=== PATIENT | male | born 1985 | race Caucasian/White ===

== ENCOUNTER 2021-03-29 03:57 | Emergency (ER) | payer OTHER, SELFPAY ==
[~2021-03-29] VITALS: Ht 175.3 cm; Wt 100.0 kg
[2021-03-29 04:59] LABS: HEMATOCRIT 47.8 % (42.0-52.0); HEMOGLOBIN 15.8 g/dl (13.5-17.5); MEAN CORPUSCULAR HEMOGLOBIN 32.2 pg (27.0-33.0); MEAN CORPUSCULAR HGB CONC 33.1 g/dl (32.0-36.5); MEAN CORPUSCULAR VOLUME 97.4 fl (80.0-96.0); PLATELET COUNT, AUTOMATED 326 10^3/uL (150-450); RED BLOOD COUNT 4.91 10^6/uL (4.30-6.10); WHITE BLOOD COUNT 7.9 10^3/uL (4.0-10.0)
[2021-03-29 05:28] LABS: ALT/SGPT 39 U/L (12-78); BILIRUBIN,DIRECT < 0.1 MG/DL (0.0-0.2); BLOOD UREA NITROGEN 13 MG/DL (7-18); CALCIUM LEVEL 8.3 MG/DL (8.5-10.1); CARBON DIOXIDE LEVEL 28 MEQ/L (21-32); CHLORIDE LEVEL 109 MEQ/L (98-107); CREATININE FOR GFR 0.95 MG/DL (0.70-1.30); GLOMERULAR FILTRATION RATE > 60.0 (>60); GLUCOSE, FASTING 95 MG/DL (70-100); POTASSIUM SERUM 4.5 MEQ/L (3.5-5.1); SALICYLATE LEVEL 2.5 MG/DL (5.0-30.0); SODIUM LEVEL 143 MEQ/L (136-145); TOTAL PROTEIN 7.7 GM/DL (6.4-8.2)
[2021-03-29 05:29] LABS: ACETAMINOPHEN LEVEL < 2.0 UG/ML (10.0-30.0)
[2021-03-29 06:45] LABS: BILIRUBIN,TOTAL < 0.1 MG/DL (0.2-1.0)
[2021-03-29 10:10] LABS: AMPHETAMINES LEVEL URINE NEGATIVE (NEGATIVE); BARBITURATES URINE NEGATIVE (NEGATIVE); BENZODIAZEPINES URINE NEGATIVE (NEGATIVE); CANNABINOIDS URINE NEGATIVE (NEGATIVE); COCAINE METABOLITE URINE NEGATIVE (NEGATIVE); METHADONE URINE NEGATIVE (NEGATIVE); OPIATES URINE NEGATIVE (NEGATIVE); PHENCYCLIDINE URINE NEGATIVE (NEGATIVE)
[2021-03-29 21:56] VITALS: BP 168/88
== END 2021-03-29 23:17 ==
LOC: M ED 03:57
DX: F32.9 Major depressive disorder, single episode, unspecified (principal); F10.10 Alcohol abuse, uncomplicated; R45.851 Suicidal ideations; I45.19 Other right bundle-branch block; F17.200 Nicotine dependence, unspecified, uncomplicated